=== PATIENT | female | born 1960 | race Asian ===

== ENCOUNTER 2024-12-14 11:18 | Outpatient (CLI) | payer OTHER, SELFPAY | END 2024-12-14 11:19 | disposition home or self-care (01) | LOC: LKVREF 11:21 | PROVIDERS: PCP Nurse Practitioner Family; Visit Provider Nurse Practitioner Family | DX: I10 Essential (primary) hypertension (principal); E78.5 Hyperlipidemia, unspecified; R73.03 Prediabetes; Z13.0 Encounter for screening for diseases of the blood and blood-forming organs and certain disorders involving the immune mechanism | CPT/HCPCS: 80053; 80061; 87086 ==